=== PATIENT | female | born 1940 | race Caucasian/White ===

== ENCOUNTER → 2016-11-27 | Outpatient (CLI) | payer OTHER ==
[~2016-11-27] MED LIST: IOPAMIDOL (ISOVUE 370) 100 ML BTL IV ONE
== END ==
LOC: FIMAGING 09:07
PROVIDERS: ATTEND Family Medicine
DX: I65.23 Occlusion and stenosis of bilateral carotid arteries (principal); J43.2 Centrilobular emphysema
CPT/HCPCS: 70496; 70498; Q9967

== ENCOUNTER → 2017-06-09 | Outpatient (CLI) | payer OTHER | LOC: BMCIMAGING 14:21 | PROVIDERS: ATTEND Family Medicine | DX: Z13.820 Encounter for screening for osteoporosis (principal); M81.0 Age-related osteoporosis without current pathological fracture; E07.9 Disorder of thyroid, unspecified; Z09 Encounter for follow-up examination after completed treatment for conditions other than malignant neoplasm; I65.22 Occlusion and stenosis of left carotid artery; Z79.899 Other long term (current) drug therapy ==

== ENCOUNTER 2017-07-17 13:16 | Emergency (ER) | payer OTHER ==
[2017-07-17] MEDS ORDERED: ACETAMINOPHEN 500 MG TAB PO ONE (13:23)
--- NOTE | 2017-07-17 13:26 | EDPHY ---
H & P Time Seen by Provider: 07/17/17 13:23 HPI/ROS: HPI CHIEF COMPLAINT: Mechanical trip and fall with head strike HISTORY OF PRESENT ILLNESS: This patient very pleasant 76-year-old female she lives up in [facility], she was in [place] getting coffee she walked into a coffee shop and tripped over the door threshold she fell forward with head strike. No LOC. She sustained a left forehead hematoma. Additionally she reports she fell on her left thigh and her left thigh hurts her. She presents emergency room GCS 15, alert or x4, no acute distress. She does complain of a left-sided frontal headache. No neck pain. No chest pain no shortness of breath. Denies syncope. Denies focal weakness numbness or tingling. Past Medical History: Thyroid disease, hypertension and CVA on aspirin Past Surgical History: Denies recent surgical history but did have a carotid endarterectomy Social History: Denies drugs alcohol tobacco. Resides in [facility] Family History: Noncontributory ROS REVIEW OF SYSTEMS: A comprehensive 10 point review of systems is otherwise negative aside from elements mentioned in the history of present illness. Exam Constitutional appears well nontoxic no acute distress, GCS 15, triage nursing summary reviewed, vital signs reviewed, awake/alert. Eyes normal conjunctivae and sclera, EOMI, PERRLA. HENT head/neck: Shows a left forehead hematoma, superficial abrasion, no large laceration, neck is nontender no midline tenderness, no step-offs, no crepitus, moist mucus membranes, no epistaxis, neck supple/ no meningismus, no raccoon eyes. Respiratory clear to auscultation bilaterally, normal breath sounds, no respiratory distress, no wheezing. Cardiovascular rate normal, regular rhythm, no murmur, no edema, distal pulses normal. Gastrointestinal soft, non-tender, no rebound, no guarding, normal bowel sounds, no distension, no pulsatile mass. Genitourinary no CVA tenderness. Musculoskeletal tender palpation over the left lateral thigh, left leg neurovascular intact distally, good distal pulse, good cap refill no midline vertebral tenderness, full range of motion, no calf swelling, no tenderness of extremities, no meningismus, good pulses, neurovascularly intact. Skin pink, warm, & dry, no rash, skin atraumatic. Neurologic awake, alert and oriented x 3, AAOx3, moves all 4 extremities equally, motor intact, sensory intact, CN II-XII intact, normal cerebellar, normal vision, normal speech. Psychiatric normal mood/affect. Heme/Lymph/Immune no lymphadenopathy. Differential Diagnosis: Includes but is not limited to in a particular order: Traumatic subarachnoid, subdural hemorrhage, epidural hemorrhage, skull fracture , scalp hematoma, concussion, closed-head injury, parenchymal contusion Medical Decision Making: Plan for this patient CT head without contrast rule out significant fracture or bleed. Tylenol for pain control re-evaluate. Re-evaluation: CT scan head without contrast shows a soft tissue scalp hematoma but no intracranial bleed or skull fracture. This called to me by Dr. Don. Source: Patient, EMS Constitutional: Initial Vital Signs Temperature (C) 36.6 C 07/17/17 13:27 Heart Rate 64 07/17/17 13:27 Respiratory Rate 16 07/17/17 13:27 Blood Pressure 220/94 H 07/17/17 13:27 O2 Sat (%) 94 07/17/17 13:27 O2 Delivery Mode Room Air Allergies/Adverse Reactions: No Known Allergies Allergy (Unverified 07/17/17 13:26) Home Medications: Medication Instructions Recorded Aspirin 07/17/17 Levothyroxine 07/17/17 Metoprolol Succinate 07/17/17 Medical Decision Making - Data Points Medications Given: Discontinued Medications Acetaminophen (Tylenol) 1,000 mg PO EDNOW ONE Stop: 07/17/17 13:24 Last Admin: 07/17/17 13:36 Dose: 1,000 mg Diphtheria/Tetanus/Acell Pertussis (Boostrix) 0.5 ml IM .ONCE ONE Stop: 07/17/17 13:41 Last Admin: 07/17/17 13:48 Dose: 0.5 ml Departure - Departure Disposition: Home, Routine, Self-Care Clinical Impression: Concussion Qualifiers: Encounter type: initial encounter Loss of consciousness presence/duration: without LOC Qualified Code(s): S06.0X0A - Concussion without loss of consciousness, initial encounter Head injury Qualifiers: Encounter type: initial encounter Qualified Code(s): S09.90XA - Unspecified injury of head, initial encounter Condition: Good Instructions: Concussion (ED), Head Injury (ED) Additional Instructions: 1. Stay well-hydrated drink lots of fluids. 2. Take it easy over the next 2-3 days. 3. Return emergency room if you have worsening headache vomiting or do not feel well. 4. Return emergency room immediately if he develops worsening headache vomiting questions or concerns. Referrals: Patient,NotPresent [Unknown] - As per Instructions
[2017-07-17] MEDS ORDERED: TDAP ADULT 0.5 ML INJ (BOOSTRIX) IM ONE (13:40)
[2017-07-17] MEDS ORDERED: LOSARTAN POTASSIUM 25 MG TAB PO SCH (15:30)
[2017-07-17 16:26] VITALS: BP 163/69
[2017-07-17] MEDS ORDERED: HYDROCOD/APAP 5/325 PREPACK#6 BTL TAKEHOME ONE (16:34)
== END 2017-07-17 16:41 | disposition home or self-care (01) ==
LOC: EDUNIT#
DX: S06.0X0A Concussion without loss of consciousness, initial encounter (principal); I10 Essential (primary) hypertension; Z86.73 Personal history of transient ischemic attack (TIA), and cerebral infarction without residual deficits; Z79.82 Long term (current) use of aspirin; Z23 Encounter for immunization; W01.198A Fall on same level from slipping, tripping and stumbling with subsequent striking against other object, initial encounter; Y92.511 Restaurant or cafe as the place of occurrence of the external cause; Y99.8 Other external cause status; Y93.01 Activity, walking, marching and hiking